=== PATIENT | male | born 1990 | race Caucasian/White ===

== ENCOUNTER 2023-12-07 17:53 | Inpatient (IN) | payer MEDICAID ==
[~2023-12-07] VITALS: Ht 180.3 cm; Wt 98.0 kg
[2023-12-07 17:58] VITALS: BP 110/62; PULSE 115; RESP 18; TEMP 96.8; O2SAT 98
[2023-12-07] MEDS ORDERED: PIPERACILLIN/TAZOBACTAM 3.375 GM VIAL IV ONE (18:28)
[2023-12-07 18:32] LABS: BASOPHILS % (AUTO) 0.3 % (0.0-2.0); EOSINOPHILS # (AUTO) 0.2 K/uL (0-0.4); EOSINOPHILS % (AUTO) 1.6 % (0.0-4.0); HEMATOCRIT 41.5 % (36-52); HEMOGLOBIN 14.2 g/dL (12.0-18.0); LYMPHOCYTES # (AUTO) 2.4 K/uL (2.0-11.5); LYMPHOCYTES % (AUTO) 18.3 % (20.5-51.1); MEAN CORPUSCULAR HEMOGLOBIN 29 pg (27-31); MEAN CORPUSCULAR HGB CONC 34 g/dL (33-37); MEAN CORPUSCULAR VOLUME 85.2 fL (80-94); MONOCYTES # (AUTO) 1.1 K/uL (0.8-1.0); MONOCYTES % (AUTO) 8.8 % (1.7-9.3); NEUTROPHILS # (AUTO) 9.3 K/uL (1.8-7.7); PLATELET COUNT (AUTO) 231 K/uL (140-450); RED BLOOD CELL COUNT(AUTO) 4.87 MIL/uL (4.20-6.10); RED CELL DISTRIBUTION WIDTH 13.3 % (11.6-13.7)
[2023-12-07 18:51] LABS: ALBUMIN 3.3 g/dL (3.4-5.0); ANION GAP 13.5 (8-16); CALCIUM 8.8 mg/dL (8.5-10.1); CARBON DIOXIDE 26.2 mmol/L (21-32); CREATININE 1.1 mg/dL (0.6-1.3); POTASSIUM 3.7 mmol/L (3.5-5.1); TOTAL BILIRUBIN 0.4 mg/dL (0.0-1.0); TOTAL PROTEIN, SERUM 7.2 g/dL (6.4-8.2)
[2023-12-07] MEDS: PIPERACILLIN/TAZOBACTAM 3.375 GM in DEXTROSE 5% 50 ML IV ONE (18:53)
[2023-12-07] MEDS ORDERED: LIDOCAINE MPF 1% 5 ML ONE (19:55)
[2023-12-07] MEDS ORDERED: LIDOCAINE MPF 2% 100 MG/5 ML VIAL INJ ONE (19:55)
[2023-12-07] MEDS ORDERED: ACETAMINOPHEN 325 MG TAB PO PRN (20:25)
[2023-12-07] MEDS: MORPHINE SULFATE 4 MG/ML SYR IVP ONE (20:25)
[2023-12-07] MEDS: ONDANSETRON 4 MG/2 ML VIAL IVP ONE (20:27)
[2023-12-07] MEDS: LIDOCAINE MPF 1% 10 MG/ML VIAL INJ ONE (20:44)
[2023-12-07] MEDS: NACL 0.9% 1,000 ML IV SCH (20:53)
[2023-12-07 21:31] VITALS: O2SAT 97
[2023-12-07 22:06] LABS: AMPHETAMINE, URINE POSITIVE ng/ml (NEG <=1000); BARBITURATE, URINE NEGATIVE ng/ml (NEG <=200); BENZODIAZEPINE, URINE NEGATIVE ng/mL (NEG <=200); CANNABINOID, URINE NEGATIVE ng/mL (NEG <=50); COCAINE, URINE NEGATIVE ng/mL (NEG <=300); OPIATE, URINE POSITIVE ng/mL (NEG <=2000); PHENCYCLIDINE SCREEN,URINE NEGATIVE ng/mL (NEG <=25)
[2023-12-07 23:51] VITALS: O2SAT 96
[2023-12-08] MEDS ORDERED: PIPERACILLIN/TAZOBACTAM 3.375 GM in DEXTROSE 5% 50 ML IV SCH ×2 (01:00→07:00)
[2023-12-08] MEDS: MORPHINE SULFATE 2 MG/ML SYR IVP PRN (01:24)
[2023-12-08] MEDS: ONDANSETRON 4 MG/2 ML VIAL IVP PRN (01:25)
[2023-12-08] MEDS ORDERED: PIPERACILLIN/TAZOBACTAM 3.375 GM VIAL IV ONE (01:47)
[2023-12-08 02:11] VITALS: O2SAT 96
[2023-12-08] MEDS: PIPERACILLIN/TAZOBACTAM 3.375 GM in DEXTROSE 5% 50 ML IV ONE (02:11)
[2023-12-08 05:04] VITALS: O2SAT 95
[2023-12-08 08:45] VITALS: PULSE 94; PULSE 95; RESP 18; RESP 20; O2SAT 96; O2SAT 97
[2023-12-08] MEDS: PIPERACILLIN/TAZOBACTAM 3.375 GM in DEXTROSE 5% 50 ML IV SCH ×2 (11:30→20:42)
[2023-12-08] MEDS: NICOTINE TRANSD SYS 14 MG/24 HR PATCH TD SCH (14:22)
[2023-12-08 16:00] VITALS: BP 146/84; PULSE 94; RESP 18; TEMP 99.5; O2SAT 97
[2023-12-08] MEDS: MORPHINE SULFATE 4 MG/ML SYR IVP PRN (19:15)
[2023-12-08 20:00] VITALS: BP 113/54; PULSE 96; RESP 18; TEMP 99.7; O2SAT 97; O2SAT 98
[2023-12-09] VITALS: BP 112/65; PULSE 77; RESP 18; TEMP 96.9; O2SAT 98
[2023-12-09] MEDS: HYDROcodone/APAP 5/325 MG 1 TAB TAB PO PRN (00:54)
[2023-12-09 04:00] VITALS: BP 114/66; PULSE 80; RESP 18; TEMP 97; O2SAT 98
[2023-12-09 07:26] LABS: INR 0.92 (0.8-1.2); PROTHROMBIN TIME 9.7 secs (10.8-13.4)
[2023-12-09 08:00] VITALS: PULSE 77; RESP 18; O2SAT 93
[2023-12-09] MEDS ORDERED: ONDANSETRON 4 MG/2 ML VIAL IVP PRN (09:45)
[2023-12-09] MEDS ORDERED: MEPERIDINE 25 MG/ML SYR IVP PRN (09:45)
[2023-12-09] MEDS ORDERED: HYDROmorphone 1 MG/ML AMP IVP PRN (09:45)
[2023-12-09] MEDS ORDERED: SEVOFLURANE 250 ML BTL INH ONE (10:00)
[2023-12-09] MEDS: BUPIVACAINE-MPF 0.25% 30 ML VIAL INJ ONE (10:08)
[2023-12-09] MEDS: fentaNYL citrate 0.05 MG/ML VIAL ONE (10:10)
[2023-12-09] MEDS: MIDAZOLAM 2 MG/2 ML VIAL ONE (10:11)
[2023-12-09 11:21] VITALS: BP 151/79; PULSE 77; RESP 18; TEMP 97.9; O2SAT 93
[2023-12-09 16:00] VITALS: BP 121/76; PULSE 75; RESP 18; TEMP 98.2; O2SAT 98
[2023-12-09] MEDS: HYDROmorphone 1 MG/ML AMP IVP PRN (16:10)
[2023-12-09 20:00] VITALS: BP 131/69; PULSE 90; RESP 18; TEMP 98.5; O2SAT 90; O2SAT 98
[2023-12-09] MEDS: MAGNESIUM HYDROXIDE 2400 MG/30 ML UDC PO PRN (20:04)
[2023-12-09] MEDS: LORazepam 2 MG/ML VIAL IVP PRN (21:46)
[2023-12-10 08:00] VITALS: BP 98/69; PULSE 99; RESP 16; TEMP 98.2; O2SAT 100
[2023-12-10] MEDS ORDERED: CLIN150C1 PO (09:25)
[2023-12-10] MEDS ORDERED: ACET-8905 PO (09:25)
[2023-12-10] MEDS ORDERED: LEVO-481 PO (09:25)
[2023-12-10 11:16] VITALS: BP 98/69; PULSE 99; RESP 16; TEMP 98.2
== END 2023-12-10 12:06 | disposition home or self-care (01) | DRG 951 ==
LOC: MED 17:53 → MTU 20:26
PROVIDERS: ADMIT Family Medicine; ATTEND Family Medicine
PROC: 0R9M0ZZ Drainage of Left Elbow Joint, Open Approach (ICD-10-PCS; principal; 2023-12-09 10:20)
DX: L02.512 Cutaneous abscess of left hand (principal); E44.0 Moderate protein-calorie malnutrition; L03.114 Cellulitis of left upper limb; W57.XXXA Bitten or stung by nonvenomous insect and other nonvenomous arthropods, initial encounter; Y93.89 Activity, other specified; Z79.899 Other long term (current) drug therapy; Y92.89 Other specified places as the place of occurrence of the external cause; Y99.8 Other external cause status; Z68.30 Body mass index [BMI] 30.0-30.9, adult; D72.829 Elevated white blood cell count, unspecified
CPT/HCPCS: 36415; 73080; 76881; 80053; 80305; 83605; 84484; 85025; 85379; 85610; 85651; 85730; 86140; 87040; 87070; 87075; 87081; 87186; 87205; 90471; 90715; 93005; 96365; 96375; 99285; J1170; J1885; J2001; J2060; J2250; J2270; J2405; J2543; J2704; J3010; J3490; J7060; Q0092

== ENCOUNTER 2023-12-16 00:16 | Emergency (ER) | payer MEDICAID ==
[~2023-12-16] VITALS: Ht 180.3 cm; Wt 95.7 kg
[~2023-12-16 00:16] MED LIST: ACET-8905 PO; CLIN150C1 PO; LEVO-481 PO
[2023-12-16 00:33] VITALS: BP 119/70; PULSE 99; RESP 20; TEMP 98; O2SAT 98
[2023-12-16 00:43] VITALS: BP 119/70; PULSE 99; RESP 20; TEMP 98; O2SAT 98
== END 2023-12-16 02:10 | disposition home or self-care (01) ==
LOC: MED 00:16
DX: S51.032D Puncture wound without foreign body of left elbow, subsequent encounter (principal); Z79.899 Other long term (current) drug therapy; X58.XXXD Exposure to other specified factors, subsequent encounter
CPT/HCPCS: 99281

== ENCOUNTER 2024-01-07 23:40 | Emergency (ER) | payer MEDICAID ==
[~2024-01-07] VITALS: Ht 180.3 cm; Wt 95.3 kg
[2024-01-08 00:09] VITALS: BP 97/64; PULSE 96; RESP 18; TEMP 98; O2SAT 98
[2024-01-08] MEDS: KETOROLAC 30 MG/ML VIAL IM ONE (01:04)
[2024-01-08 01:39] VITALS: BP 105/64; PULSE 92; RESP 18; TEMP 98.2; O2SAT 98
[2024-01-08] MEDS ORDERED: IBUP-2213 PO (01:57)
== END 2024-01-08 02:03 | disposition home or self-care (01) ==
LOC: MED 23:40
DX: M25.511 Pain in right shoulder (principal); M25.531 Pain in right wrist; Z79.1 Long term (current) use of non-steroidal anti-inflammatories (NSAID); Z79.2 Long term (current) use of antibiotics; Z79.899 Other long term (current) drug therapy
CPT/HCPCS: 73030; 73110; 96372; 99284; J1885

== ENCOUNTER 2024-03-31 21:27 | Emergency (ER) | payer MEDICAID ==
[~2024-03-31] VITALS: Ht 180.3 cm; Wt 93.0 kg
[~2024-03-31 21:27] MED LIST changes: +IBUP-2213 PO
[2024-03-31 21:42] VITALS: BP 106/62; PULSE 95; RESP 18; TEMP 98.7; O2SAT 97
[2024-03-31 21:56] VITALS: BP 106/62; PULSE 95; RESP 18; TEMP 98.7
[2024-03-31 22:01] VITALS: O2SAT 98
[2024-03-31] MEDS: NACL 0.9% 1,000 ML IV ONE (22:29)
[2024-03-31] MEDS: ONDANSETRON 4 MG/2 ML VIAL IVP ONE (22:29)
[2024-03-31 22:31] LABS: BASOPHILS % (AUTO) 0.3 % (0.0-2.0); EOSINOPHILS # (AUTO) 0.2 K/uL (0-0.4); HEMATOCRIT 39.5 % (36-52); HEMOGLOBIN 13.4 g/dL (12.0-18.0); LYMPHOCYTES # (AUTO) 1.8 K/uL (2.0-11.5); LYMPHOCYTES % (AUTO) 22.9 % (20.5-51.1); MEAN CORPUSCULAR HEMOGLOBIN 28 pg (27-31); MEAN CORPUSCULAR HGB CONC 34 g/dL (33-37); MEAN CORPUSCULAR VOLUME 81.2 fL (80-94); MONOCYTES # (AUTO) 0.7 K/uL (0.8-1.0); NEUTROPHILS # (AUTO) 5.1 K/uL (1.8-7.7); NEUTROPHILS % (AUTO) 65.8 % (42.2-75.2); PLATELET COUNT (AUTO) 144 K/uL (140-450); RED BLOOD CELL COUNT(AUTO) 4.86 MIL/uL (4.20-6.10); WHITE BLOOD COUNT (AUTO) 7.8 K/uL (4.8-10.8)
[2024-03-31 22:41] VITALS: O2SAT 98
[2024-03-31 22:50] LABS: ALBUMIN 2.8 g/dL (3.4-5.0); ANION GAP 8.9 (8-16); CALCIUM 8.3 mg/dL (8.5-10.1); CREATININE 1.2 mg/dL (0.6-1.3); TOTAL BILIRUBIN 0.2 mg/dL (0.0-1.0); TOTAL PROTEIN, SERUM 6.4 g/dL (6.4-8.2)
[2024-03-31 22:54] LABS: POTASSIUM 2.9 mmol/L (3.5-5.1)
[2024-03-31] MEDS ORDERED: ALUMINUM HYD/MAG/SIMETHICONE 30 ML UDC ONE (23:42)
[2024-03-31] MEDS ORDERED: DICYCLOMINE HCL LIQUID 10 MG/5 ML UDC ONE (23:42)
[2024-03-31] MEDS: POTASSIUM CHLORIDE 10 MEQ TABER PO ONE (23:49)
[2024-03-31] MEDS: DICYCLOMINE HCL LIQUID 20 MG, ALUMINUM HYD/MAG/SIMETHICONE 30 ML, LIDOCAINE VISCOUS 2% ... PO ONE (23:49)
[2024-03-31 23:52] LABS: APPEARANCE,URINE CLEAR (CLEAR); BILIRUBIN,URINE NEGATIVE (NEGATIVE); BLOOD, URINE NEGATIVE (NEGATIVE); COLOR,URINE YELLOW (YELLOW); LEUKOCYTE ESTERASE ,URINE NEGATIVE (NEGATIVE); NITRITE, URINE NEGATIVE (NEGATIVE); PROTEIN,URINE TRACE (NEGATIVE); UGLUCOSE NEGATIVE (NEGATIVE); UROBILINOGEN,URINE 0.2 EU/dL (0.2 - 1)
[2024-04-01] MEDS ORDERED: ONDA-188 PO (00:09)
[2024-04-01] MEDS ORDERED: BISM262C53 PO (00:09)
[2024-04-01] MEDS ORDERED: MAG355OR2 PO (00:09)
== END 2024-04-01 00:16 | disposition home or self-care (01) ==
LOC: MED 21:27
DX: K52.9 Noninfective gastroenteritis and colitis, unspecified (principal); E87.6 Hypokalemia; Z79.1 Long term (current) use of non-steroidal anti-inflammatories (NSAID); Z79.2 Long term (current) use of antibiotics; Z79.899 Other long term (current) drug therapy
CPT/HCPCS: 36415; 80053; 81003; 83690; 85025; 96361; 96374; 99283; J2405; J7030